=== PATIENT | male | born 1985 | race Caucasian/White ===

== ENCOUNTER 2019-08-23 17:31 | Emergency (ER) | payer BC, OTHER ==
[~2019-08-23] VITALS: Ht 172.7 cm; Wt 101.5 kg
[2019-08-23 17:43] VITALS: BP 144/96
--- NOTE | 2019-08-23 17:55 | ED General ---
General Chief Complaint: Cardiac/General Problems Stated Complaint: HIGH BP Nursing Triage Note: PT AMBULATE TO ROOM 06 WITH C/O HYPERTENSION. PT STATES HE TOOK BP AT THE [facility] AND IT READ 168/95. Nursing Sepsis Screen: No Definite Risk Source of Information: Patient Exam Limitations: No Limitations History of Present Illness Date Seen by Provider: Aug 23, 2019 Time Seen by Provider: 17:56 Initial Comments To ER with reports of blood pressure, that started earlier today, he has troubles with anxiety, takes BuSpar for this. He feels that his anxiety was [id number] until last night, he has since had increased anxiety along with increased heart rate and blood pressure since then. Timing/Duration: 1-2 Days Severity: Moderate Associated Systoms: Cough Allergies and Home Medications Allergies Coded Allergies: No Known Drug Allergies (Unverified , 08/23/19) Home Medications Hydroxyzine Pamoate 25 Mg Capsule, 25 MG PO Q4H PRN for ANXIETY Prescribed by: MARQUEZ REYNA on 08/23/19 8674 Patient Home Medication List Home Medication List Reviewed: Yes Review of Systems Review of Systems Constitutional: see HPI EENTM: see HPI Respiratory: no symptoms reported Cardiovascular: no symptoms reported Genitourinary: no symptoms reported Musculoskeletal: no symptoms reported Skin: no symptoms reported Psychiatric/Neurological: See HPI, Anxiety Hematologic/Lymphatic: No Symptoms Reported Immunological/Allergic: no symptoms reported Past Wsdygat-Onjajm-Smukog Hx Patient Social History Recent Foreign Travel: No Contact w/Someone Who Travel: No Recent Infectious Disease Expo: No Physical Exam Vital Signs Vital Signs - First Documented 08/23/19 17:43 Temp 36.6 Pulse 124 Resp 21 B/P (MAP) 144/96 (112) O2 Delivery Room Air Capillary Refill : Less Than 3 Seconds Height, Weight, BMI Height: '" Weight: lbs. oz. kg; 34.00 BMI Method: General Appearance: No Apparent Distress, WD/WN, Anxious Eyes: Bilateral Eye Normal Inspection, Bilateral Eye PERRL, Bilateral Eye EOMI Neck: Full Range of Motion, Normal Inspection Respiratory: Normal Breath Sounds, No Accessory Muscle Use, No Respiratory Distress Cardiovascular: Regular Rate, Rhythm, Normal Peripheral Pulses Gastrointestinal: Non Tender, Soft Neurologic/Psychiatric: Alert, Oriented x3 Skin: Normal Color, Warm/Dry, Other (multiple sores dorsal aspect both arms) Progress/Results/Core Measures Suspected Sepsis Recent Fever Within 48 Hours: No Infection Criteria Present: None New/Unexplained Altered Menta: No Sepsis Screen: No Definite Risk SIRS Temperature: Pulse: 124 Respiratory Rate: 21 Blood Pressure 144 /96 Mean: 112 Results/Orders My Orders Orders - MARQUEZ REYNA APRN Hydroxyzine Cap/Tab (Vistaril) (08/23/19 18:00) Medications Given in ED Current Medications Medications Dose Ordered Sig/Malia Route Start Time Stop Time Status Last Admin Dose Admin Hydroxyzine Pamoate 25 mg ONCE ONCE PO 08/23/19 18:00 08/23/19 18:01 DC 08/23/19 18:00 25 MG Vital Signs/I&O 08/23/19 17:43 Temp 36.6 Pulse 124 Resp 21 B/P (MAP) 144/96 (112) O2 Delivery Room Air Capillary Refill : Less Than 3 Seconds Blood Pressure Mean: 112 Departure Impression Primary Impression: Anxiety Disposition: 01 HOME, SELF-CARE Condition: Improved Departure-Patient Inst. Decision time for Depature: 17:57 Referrals: NO,LOCAL PHYSICIAN (PCP) Primary Care Physician Patient Instructions: Anxiety, Adult (DC) Add. Discharge Instructions: 1. Medication as directed 2. Follow-up with your doctor next week 3. All discharge instructions reviewed with patient and/or family. Voiced understanding. Scripts Hydroxyzine Pamoate (Vistaril) 25 Mg Capsule 25 MG PO Q4H PRN for ANXIETY, #14 CAP Prov: MARQUEZ REYNA APRN 08/23/19 MARQUEZ REYNA APRN Aug 23, 2019 17:55
[2019-08-23] MEDS ORDERED: HYDR25CA PO (17:58)
[2019-08-23] MEDS ORDERED: hydrOXYzine (VISTARIL/ATARAX) 25 MG capsule/tablet PO ONE (18:00)
== END 2019-08-23 18:29 | disposition home or self-care (01) ==
LOC: ER 17:35
DX: F41.9 Anxiety disorder, unspecified (principal)
CPT/HCPCS: 99283

== ENCOUNTER 2019-09-26 05:18 | Emergency (ER) | payer BC ==
[~2019-09-26] VITALS: Ht 173 cm; Wt 101.6 kg
[~2019-09-26 05:18] MED LIST: HYDR25CA PO
--- OUTSIDE RECORDS SUMMARY | 2019-09-26 05:25 | XMS REPORT | Continuity of Care Document ---
Author Organization Unknown Address Unknown Phone Unavailable Allergies Active Description Code Type Severity Reaction Onset Reported/Identified Relationship to Patient Clinical Status Yes No Known Drug Allergies [id number] Drug Allergy Unknown N/A 08/23/2019 Medications There is no data. Problems Date Dx Coded Attending Type Code Diagnosis Diagnosed By 08/23/2019 MARQUEZ REYNA APRN Ot F41 .9 ANXIETY DISORDER, UNSPECIFIED 08/23/2019 MARQUEZ REYNA APRN Ot R03 .0 ELEVATED BLOOD-PRESSURE READING, W/O DIONICIO 08/26/2019 MARQUEZ REYNA APRN Ot F41 .9 ANXIETY DISORDER, UNSPECIFIED 08/26/2019 MARQUEZ REYNA APRN Ot R03 .0 ELEVATED BLOOD-PRESSURE READING, W/O DIONICIO Procedures There is no data. Results There is no data. Encounters ACCT No. Visit Date/Time Discharge Status Pt. Type Provider Facility Loc./Unit Complaint [id number] 08/23/2019 11:00:00 08/23/2019 23:59: 59 CLS Outpatient [facility]ANDA [facility] [id number] 08/23/2019 17:35:00 020 18:29:00 DIS Emergency MARQUEZ REYNA APRN [facility] ER HIGH BP
[2019-09-26] MEDS ORDERED: PROP10TA8 PO (05:36)
[2019-09-26] MEDS ORDERED: BUSP5TAB59 PO (05:36)
[2019-09-26 05:40] VITALS: BP 129/92
[2019-09-26] MEDS ORDERED: ASPIRIN 81 MG CHEW (CHILDREN'S ASA) PO ONE (06:30)
[2019-09-26 06:52] LABS: BASOPHILS % (AUTO) 0 % (0-10); EOSINOPHILS # (AUTO) 0.3 10^3/uL (0.0-0.3); EOSINOPHILS % (AUTO) 4 % (0-10); HEMATOCRIT 43 % (40-54); HEMOGLOBIN 15.2 G/DL (13.3-17.7); LYMPHOCYTES # (AUTO) 1.2 X 10^3 (1.0-4.0); LYMPHOCYTES % (AUTO) 16 % (12-44); MEAN CORPUSCULAR HEMOGLOBIN 29 PG (25-34); MEAN CORPUSCULAR HGB CONC 35 G/DL (32-36); MEAN CORPUSCULAR VOLUME 82 FL (80-99); MEAN PLATELET VOLUME 10.3 FL (7.4-10.4); MONOCYTES # (AUTO) 0.8 X 10^3 (0.0-1.0); MONOCYTES % (AUTO) 11 % (0-12); NEUTROPHILS # (AUTO) 5.2 X 10^3 (1.8-7.8); NEUTROPHILS % (AUTO) 69 % (42-75); PLATELET COUNT 309 10^3/uL (130-400); WHITE BLOOD COUNT 7.5 10^3/uL (4.3-11.0)
--- NOTE | 2019-09-26 06:57 | Diagnostic Imaging Report ---
INDICATION: Hypertension sweating and palpitations anxiety COMPARISON STUDY: None FINDINGS: Portable upright view of the chest demonstrate the lungs to be clear. The heart, mediastinum and pulmonary vascularity and visualized bony thorax are normal. IMPRESSION: Normal portable chest. Dictated by: Dictated on workstation # [id number]
--- NOTE | 2019-09-26 07:04 | ED Chest Pain ---
General Chief Complaint: Psych/Social Disorder Stated Complaint: HEART PALPITATIONS,HIGH BLOOD PRESSURE 142/97 Nursing Triage Note: c/o high blood pressue, sweating, palpatation, increased anxiety. Nursing Sepsis Screen: No Definite Risk Source: patient Exam Limitations: no limitations History of Present Illness Date Seen by Provider: Sep 26, 2019 Time Seen by Provider: 06:20 Initial Comments This 33-year-old gentleman presents to the emergency room with concerns about elevated blood pressure and chest discomfort intermittently for the past several days. He woke around 01:00 this morning concerned about his blood pressure because he forgot to take his propranolol at 22:00 at the usual time. He has significant problems with anxiety, depression, PTSD, and anger. His blood pressure elevations and chest pain tend to occur at times of high emotion. He noted several elevated blood pressures this morning as he was repeatedly checking it. He is not having pain at this time and several blood pressure measurements in the ER have been normal. He smokes but denies any recent drug or alcohol use. Allergies and Home Medications Allergies Coded Allergies: No Known Drug Allergies (Unverified , 08/23/19) Home Medications Hydroxyzine Pamoate 25 Mg Capsule, 25 MG PO Q4H PRN for ANXIETY Prescribed by: MARQUEZ REYNA on 08/23/19 [id number] Propranolol HCl 10 Mg Tablet, Unknown Dose PO BID, (Reported) Patient Home Medication List Home Medication List Reviewed: Yes Review of Systems Review of Systems Constitutional: no symptoms reported EENTM: No Symptoms Reported Respiratory: No Symptoms Reported Cardiovascular: See HPI Gastrointestinal: No Symptoms Reported Genitourinary: No Symptoms Reported Musculoskeletal: no symptoms reported Skin: no symptoms reported Psychiatric/Neurological: See HPI Endocrine: No Symptoms Reported Hematologic/Lymphatic: No Symptoms Reported Past Yleligj-Ssqikk-Fvakxb Hx Past Med/Social Hx: Reviewed Nursing Past Med/Soc Hx Patient Social History Alcohol Use: Denies Use Recreational Drug Use: No Smoking Status: Current Everyday Smoker Type Used: Cigarettes, Electronic/Vapor 2nd Hand Smoke Exposure: Yes Recent Foreign Travel: No Contact w/Someone Who Travel: No Recent Infectious Disease Expo: No Recent Hopitalizations: No Physical Abuse: No Sexual Abuse: No Mistreated: No Fear: No Immunizations Up To Date Tetanus Booster (TDap): Unknown Seasonal Allergies Seasonal Allergies: Yes Past Medical History Surgeries: Yes (l arm orif) Orthopedic Respiratory: No Cardiac: Yes Hypertension Neurological: No Sexually Transmitted Disease: No HIV/AIDS: No Genitourinary: No Gastrointestinal: Yes Hemorrhoids Musculoskeletal: Yes (LEFT RAD/ULNER BREAK WITH METAL PLATE ON EACH) Fractures Endocrine: No HEENT: No Cancer: No Psychosocial: Yes Anxiety, PTSD, Depression Integumentary: Yes Psoriasis Blood Disorders: No Family Medical History Reviewed and Corrections made No Pertinent Family Hx (family medical history is largely unknown) Physical Exam Vital Signs Vital Signs - First Documented 09/26/19 05:25 Temp 36.4 Pulse 91 Resp 20 B/P (MAP) 149/98 (115) Pulse Ox 96 O2 Delivery Room Air Capillary Refill : Less Than 3 Seconds Height, Weight, BMI Height: '" Weight: lbs. oz. kg; 33.00 BMI Method: General Appearance: No Apparent Distress, WD/WN HEENT: PERRL/EOMI, Normal ENT Inspection Neck: Normal Inspection Respiratory: Chest Non Tender, Lungs Clear, Normal Breath Sounds, No Accessory Muscle Use, No Respiratory Distress Cardiovascular: Regular Rate, Rhythm, No Edema, No Murmur, Normal Peripheral Pulses Gastrointestinal: Normal Bowel Sounds, Non Tender, Soft Extremity: Normal Inspection, Non Tender, No Pedal Edema Neurologic/Psychiatric: Alert, Oriented x3, No Motor/Sensory Deficits, Normal Mood/Affect, construction operations manager II-XII Norm as Tested Skin: Normal Color, Warm/Dry Progress/Results/Core Measures Results/Orders Lab Results Laboratory Tests Test 09/26/19 06:40 Range/Units White Blood Count 7.5 4.3-11.0 10^3/uL Red Blood Count 5.31 4.35-5.85 10^6/uL Hemoglobin 15.2 13.3-17.7 G/DL Hematocrit 43 40-54 % Mean Corpuscular Volume 82 80-99 FL Mean Corpuscular Hemoglobin 29 25-34 PG Mean Corpuscular Hemoglobin Concent 35 32-36 G/DL Red Cell Distribution Width 14.0 10.0-14.5 % Platelet Count 309 130-400 10^3/uL Mean Platelet Volume 10.3 7.4-10.4 FL Neutrophils (%) (Auto) 69 42-75 % Lymphocytes (%) (Auto) 16 12-44 % Monocytes (%) (Auto) 11 0-12 % Eosinophils (%) (Auto) 4 0-10 % Basophils (%) (Auto) 0 0-10 % Neutrophils # (Auto) 5.2 1.8-7.8 X 10^3 Lymphocytes # (Auto) 1.2 1.0-4.0 X 10^3 Monocytes # (Auto) 0.8 0.0-1.0 X 10^3 Eosinophils # (Auto) 0.3 0.0-0.3 10^3/uL Basophils # (Auto) 0.0 0.0-0.1 10^3/uL Prothrombin Time 11.7 L 12.2-14.7 SEC INR Comment 0.8 0.8-1.4 Activated Partial Thromboplast Time 28 24-35 SEC Sodium Level 141 135-145 MMOL/L Potassium Level 3.9 3.6-5.0 MMOL/L Chloride Level 107 98-107 MMOL/L Carbon Dioxide Level 22 21-32 MMOL/L Anion Gap 12 5-14 MMOL/L Blood Urea Nitrogen 16 7-18 MG/DL Creatinine 0.86 0.60-1.30 MG/DL Estimat Glomerular Filtration Rate > 60 BUN/Creatinine Ratio 19 Glucose Level 108 H 70-105 MG/DL Calcium Level 9.2 8.5-10.1 MG/DL Corrected Calcium 8.8 8.5-10.1 MG/DL Magnesium Level 1.9 1.6-2.4 MG/DL Total Bilirubin 0.5 0.1-1.0 MG/DL Aspartate Amino Transf (AST/SGOT) 34 5-34 U/L Alanine Aminotransferase (ALT/SGPT) 43 0-55 U/L Alkaline Phosphatase 96 40-136 U/L Myoglobin 26.5 10.0-92.0 NG/ML Troponin I < 0.028 <0.028 NG/ML Total Protein 8.1 6.4-8.2 GM/DL Albumin 4.5 3.2-4.5 GM/DL My Orders Orders - FEMI RHODES MD Cbc With Automated Diff (09/26/19 06:30) Magnesium (09/26/19 06:30) Chest 1 View, Ap/Pa Only (09/26/19 06:30) Ekg Tracing (09/26/19 06:30) Comprehensive Metabolic Panel (09/26/19 06:30) Myoglobin Serum (09/26/19 06:30) Protime With Inr (09/26/19 06:30) Partial Thromboplastin Time (09/26/19 06:30) O2 (09/26/19 06:30) Monitor-Rhythm Ecg Trace Only (09/26/19 06:30) Ed Iv/Invasive Line Start (09/26/19 06:30) Troponin I (09/26/19 06:30) Aspirin Chewable Tablet (Baby Aspirin Ch (09/26/19 06:30) Medications Given in ED Vital Signs/I&O 09/26/19 09/26/19 09/26/19 09/26/19 05:25 05:40 07:11 07:38 Temp 36.4 Pulse 91 86 80 90 Resp 20 16 18 18 B/P (MAP) 149/98 (115) 129/92 (104) 127/86 (100) 119/78 Pulse Ox 96 97 82 95 O2 Delivery Room Air Room Air Room Air Blood Pressure Mean: 104 Progress Progress Note : Progress Note Workup was unremarkable and patient was asymptomatic at the time of discharge. Was advised to follow-up in the outpatient setting. See discharge instructions. Initial ECG Impression Date: Sep 26, 2019 Initial ECG Impression Time: 06:53 Initial ECG Rate: 83 Initial ECG Rhythm: Normal Sinus Initial ECG Intervals: Normal Initial ECG Impression: Normal Comment Normal sinus rhythm with no ST elevation or depression. No abnormal intervals or axis deviation. Diagnostic Imaging Diagonstic Imaging: Xray Plain Films/CT/US/NM/MRI: chest Comments Chest x-ray viewed by me and report reviewed. See report below: NAME: ARLYN TOVAR [facility] REC#: [id number] PT STATUS: REG ER : 1985 PHYSICIAN: FEMI RHODES MD ADMIT DATE: 09/26/19/ER Draft Date of Exam:09/26/19 CHEST 1 VIEW, AP/PA ONLY INDICATION: Hypertension sweating and palpitations anxiety COMPARISON STUDY: None FINDINGS: Portable upright view of the chest demonstrate the lungs to be clear. The heart, mediastinum and pulmonary vascularity and visualized bony thorax are normal. IMPRESSION: Normal portable chest. Dictated on workstation # [id number] Dict: 09/26/1955 Trans: 09/26/19 0657 [facility] [id number] Interpreted by: ALBAN CANO MD Departure Impression Primary Impression: Atypical chest pain Additional Impressions: Anxiety Hypertension Qualified Codes: I10 - Essential (primary) hypertension Disposition: HOME, SELF-CARE Condition: Improved (ERASED) Departure-Patient Inst. Referrals: [facility]/ (PCP) Primary Care Physician ABEBE LOPEZ APRN (Family) Primary Care Physician Patient Instructions: Anxiety, Adult (DC), High Blood Pressure (DC) Add. Discharge Instructions: Follow-up with your primary care provider soon as possible. Work on non-medicinal stress management tactics such as exercise, prayer, meditation, etc. Continue your medications as previously prescribed. It is recommended that you check your blood pressure no more than twice daily. Log your blood pressures over several days or weeks and review those with your primary care provider. Work toward quitting smoking. Return to the emergency room if you have worsening symptoms or more persistent chest pain. All discharge instructions reviewed with patient and/or family. Voiced understanding. Copy Copies To 1: SALOMÓN MOONEY JOSHUA T MD Sep 26, 2019 07:04
[2019-09-26 07:05] LABS: INR 0.8 (0.8-1.4); PROTHROMBIN TIME PATIENT 11.7 SEC (12.2-14.7)
[2019-09-26 07:11] VITALS: BP 127/86
[2019-09-26 07:13] LABS: ALANINE AMINOTRANSFERASE 43 U/L (0-55); ALBUMIN 4.5 GM/DL (3.2-4.5); ALKALINE PHOSPHATASE 96 U/L (40-136); BILIRUBIN,TOTAL 0.5 MG/DL (0.1-1.0); BUN/CREATININE RATIO 19; CALCIUM 9.2 MG/DL (8.5-10.1); CARBON DIOXIDE 22 MMOL/L (21-32); CHLORIDE 107 MMOL/L (98-107); CREATININE SERUM 0.86 MG/DL (0.60-1.30); GFR ESTIMATED > 60; GLUCOSE 108 MG/DL (70-105); MAGNESIUM 1.9 MG/DL (1.6-2.4); POTASSIUM 3.9 MMOL/L (3.6-5.0); SODIUM 141 MMOL/L (135-145); TOTAL PROTEIN 8.1 GM/DL (6.4-8.2)
[2019-09-26 07:38] VITALS: BP 119/78
== END 2019-09-26 07:38 | disposition home or self-care (01) ==
LOC: EDUNIT# 05:18 → ER 05:21
DX: R07.89 Other chest pain (principal); F41.9 Anxiety disorder, unspecified; I10 Essential (primary) hypertension; F32.9 Major depressive disorder, single episode, unspecified; F43.10 Post-traumatic stress disorder, unspecified; F17.210 Nicotine dependence, cigarettes, uncomplicated; F17.290 Nicotine dependence, other tobacco product, uncomplicated
CPT/HCPCS: 36415; 71045; 80053; 83735; 83874; 84484; 85025; 85610; 85730; 93005; 93041